=== PATIENT | female | born 1965 | race Caucasian/White ===

== ENCOUNTER 2020-01-01 08:54 | Day surgery (SDC) | payer OTHER ==
[~2020-01-01] VITALS: Ht 154.9 cm; Wt 75.6 kg
[2020-01-01] VITALS (12 sets, daily range): BP systolic 104–135; BP diastolic 61–98; PULSE 65–96; TEMP 98.3
[2020-01-01 09:41] LABS: HEMOGLOBIN 10.3 g/dl (12.5-16.0); MEAN CELL VOLUME 82 fl (80.0-100.0); MEAN CORPUSCULAR HEMOGLOBIN 24 pg (27.0-31.0); MEAN CORPUSCULAR HGB CONC 30 g/dl (33.0-37.0); MEAN PLATELET VOLUME 9.6 fl (7.4-10.4); PLATELET COUNT 408 K/mm3 (130-400); RED BLOOD COUNT 4.25 M/mm3 (4.10-5.30); REDCELL DISTRIBUTION WIDTH-CV 15.5 % (11.5-14.5)
[2020-01-01 09:45] LABS: HEMATOCRIT 34.8 % (37.0-47.0)
[2020-01-01 09:50] LABS: PROTHROMBIN TIME 10.7 SECONDS (9.7-12.8)
[2020-01-01] MEDS ORDERED: PROZAC 20MG20 MG PO (09:50)
[2020-01-01] MEDS ORDERED: SINEQUAN 1010 MG/CAP PO (09:50)
[2020-01-01] MEDS ORDERED: ZANTAC 150MG T150 MG PO (09:51)
[2020-01-01] MEDS ORDERED: SYNTHROID 0.10.15 MG PO (09:51)
[2020-01-01] MEDS ORDERED: NEXIUM 20MG20 MG PO (09:51)
[2020-01-01] MEDS ORDERED: CYMBALTA 60MG60 MG PO (09:52)
[2020-01-01] MEDS ORDERED: EPA FISH OIL1 SGL PO (09:52)
[2020-01-01 09:53] LABS: PARTIAL THROMBOPLASTIN TIME 32.6 SECONDS (26.0-37.0)
[2020-01-01] MEDS ORDERED: ASPIRIN 81M81 MG/TA2 PO (09:53)
[2020-01-01] MEDS ORDERED: VITAMIN D31000 I1 PO (09:53)
[2020-01-01 09:55] LABS: CALCIUM 9.2 mg/dL (8.4-10.2); CREATININE, serum 0.89 (0.52-1.25)
--- NOTE | 2020-01-01 11:15 | NUR ---
Pt to procedure at this time with Eugenie Bolanos.
--- NOTE | 2020-01-01 11:28 | NUR ---
SEE MERGE DOCUMENTATION FOR MEDICATION ADMINISTRATION AND INTRA/POST PROCEDURE SEDATION ASSESSMENTS.
[2020-01-01] MEDS ORDERED: NORVASC2.5 MG PO (12:05)
--- NOTE | 2020-01-01 12:33 | NUR ---
Pt returned from procedure,report from Eugenie Bolanos.
--- NOTE | 2020-01-01 17:00 | NUR ---
Discharge instructions given to pt.pt verbalizes understanding.INT removed,catheter tip intact.Dressing to right wrist observed clean,dry,intact and soft to touch.Pt escorted out via wheelchair by this nurse.
== END 2020-01-01 17:05 | disposition home or self-care (01) ==
LOC: COL.CAR 08:54
PROVIDERS: Internal Medicine Cardiovascular Disease
DX: I20.1 Angina pectoris with documented spasm (principal); E03.9 Hypothyroidism, unspecified; E78.2 Mixed hyperlipidemia; J45.909 Unspecified asthma, uncomplicated; K21.9 Gastro-esophageal reflux disease without esophagitis; K58.9 Irritable bowel syndrome, unspecified; F41.9 Anxiety disorder, unspecified; F32.9 Major depressive disorder, single episode, unspecified
CPT/HCPCS: J1644; J2250; J3010; Q9967

== ENCOUNTER → 2022-06-03 | Outpatient (CLI) | payer OTHER ==
[~2022-06-03] MED LIST: ASPIRIN 81M81 MG/TA2 PO; CYMBALTA 60MG60 MG PO; EPA FISH OIL1 SGL PO; NEXIUM 20MG20 MG PO; NORVASC2.5 MG PO; PROZAC 20MG20 MG PO; SINEQUAN 1010 MG/CAP PO; SYNTHROID 0.10.15 MG PO; VITAMIN D31000 I1 PO; ZANTAC 150MG T150 MG PO
== END ==
LOC: COL.RAD 08:16
DX: N30.20 Other chronic cystitis without hematuria (principal)